=== PATIENT | male | born 1985 | race Two or more races ===

== ENCOUNTER 2016-10-22 21:55 | Emergency (ER) | payer OTHER ==
--- NOTE | ~2016-10-22 | CR173 ---
[facility] A Service of [facility] & [facility] / [facility] RADIOLOGY TEXT RESULTS PATIENT: ARABELLA GONZALEZ LOCATION: [facility] : [birth year] UNIT #: [id number] AGE: [address]: Marc Mccoy MD SEX: M ORDER DR: [id number] [facility] [address] [place], [place] [address] [id number] MR#: [id number] Acc #: [id number] NAME: ARABELLA GONZALEZ : 1985 SEX: M STUDY DATE/TIME: 10/22/2016 23:07 UNIT: [facility] ROOM: STUDY DESCRIPTION: CR Knee 3 Views Rt Attending Physician: Marc Mccoy M.D. Ordering Physician: Marc Mccoy M.D. Primary Care Physician: Primary Care Physician No MEDICAL IMAGING REPORT This report is preliminary unless electronic signature is present EXAM Right knee series INDICATIONS Anterior right knee pain today. PROCEDURE Three views of the right knee COMPARISON: None FINDINGS. No acute fracture or dislocation. IMPRESSION No acute findings Dictated by... Justin Hartmann M.D. THIS IS AN ELECTRONICALLY VERIFIED REPORT Justin Hartmann M.D. at 10/23/2016 9:55 PM BREANNE/mal TD: 10/23/2016 08:26 JOB #: [id number] MEDICAL IMAGING REPORT Page 1 of 1 COPY
== END 2016-10-23 00:50 | disposition home or self-care (01) ==
LOC: CED 21:55
DX: L03.115 Cellulitis of right lower limb (principal); Z87.828 Personal history of other (healed) physical injury and trauma; Z88.0 Allergy status to penicillin
CPT/HCPCS: 73562; 96372; 99283